=== PATIENT | female | born 1985 | race African-American/Black ===

== ENCOUNTER 2018-01-05 10:08 | Observation (INO) ==
[2018-01-05] MEDS ORDERED: ACETAMINOPHEN 325 MG TABLET PO PRN (12:34)
[2018-01-05] MEDS ORDERED: ONDANSETRON 4 MG/2 ML VIAL IV PRN (12:34)
[2018-01-05 13:18] LABS: Basophils % 0.3 % (0.0-0.8); Eosinophils # 0.1 10*3/uL (0.0-0.87); Eosinophils % 1.1 % (0.00-10.9); Hematocrit 38.3 VOL% (35.7-47.0); Hemoglobin 12.8 GM/DL (12.0-16.0); Immature Granulocytes % 0.4 %; Immature Granulocytes Absolute 0.05 #; Lymphocytes # 2.1 10*3/uL (1.4-4.0); Lymphocytes % 18.2 % (21.3-54.2); Mean Corpuscular HGB Conc 33.4 GM/DL (32-36); Mean Corpuscular Hemoglobin 30 PG (27-34); Mean Corpuscular Volume 90.8 FL (87-102); Mean Platelet Volume 9.9 FL (9.6-12.0); Monocytes % 8.4 % (1.7-12.7); Neutrophils # 8.1 10*3/uL (1.4-7.4); Neutrophils % 71.6 % (38.7-73.9); Platelet Count 324 T/CUMM (130-400); Red Blood Count 4.22 MC/CUMM (3.8-5.5); Red Cell Distribution Width 14.5 % (9.3-17.3); White Blood Count 11.3 T/CUMM (4-12)
[2018-01-05 13:43] LABS: Calcium 8.7 MG/DL (8.5-10.1); Potassium 4.1 MMOL/L (3.5-5.1)
[2018-01-05] MEDS: PIPERACILLIN/TAZOBACTAM 3,375 MG in SODIUM CHLORIDE 0.9% 100 ML IV SCH ×2 (14:40→20:45)
[2018-01-06] MEDS: PIPERACILLIN/TAZOBACTAM 3,375 MG in SODIUM CHLORIDE 0.9% 100 ML IV SCH ×2 (04:10→15:05)
[2018-01-06] MEDS ORDERED: PANTOPRAZOLE 40 MG TABLET PO SCH (09:00)
[2018-01-06] MEDS ORDERED: NICOTINE 14 MG/24 HR PATCH TRANSDERM SCH (09:00)
[2018-01-06] MEDS ORDERED: PROPOFOL 200 MG/20 ML VIAL IV ONE (12:26)
[2018-01-06] MEDS ORDERED: MIDAZOLAM 2 MG/2 ML VIAL ONE (12:26)
[2018-01-06] MEDS ORDERED: SEVOFLURANE 1 UNIT/15 MINUTE INH ONE (12:26)
[2018-01-06] MEDS ORDERED: SODIUM CHLORIDE 0.9% 100 ML IV ONE (12:27)
[2018-01-06] MEDS ORDERED: ONDANSETRON 4 MG/2 ML VIAL ONE ×2 (12:27→12:52)
[2018-01-06] MEDS ORDERED: PHENYLEPHRINE 10 MG/1 ML VIAL IV ONE (12:27)
[2018-01-06] MEDS ORDERED: fentaNYL 100 MCG/2 ML VIAL ONE (12:27)
[2018-01-06] MEDS ORDERED: MORPHINE 10 MG/1 ML VIAL IV PRN (12:49)
[2018-01-06] MEDS ORDERED: ONDANSETRON 4 MG/2 ML VIAL IV PRN (12:49)
[2018-01-06] MEDS ORDERED: MORPHINE 10 MG/1 ML VIAL ONE (12:52)
[2018-01-06 17:22] VITALS: BP 124/82
== END 2018-01-06 18:01 | disposition home or self-care (01) ==
LOC: N.ED 10:08 → N.EDINP 10:08 → N.3E 13:41
PROVIDERS: ADMIT Surgery; ATTEND Surgery

== ENCOUNTER 2020-01-23 11:57 | Inpatient (IN) ==
[2020-01-23 13:38] LABS: Basophils % 0.2 % (0.0-0.8); Eosinophils # 0.1 10*3/uL (0.0-0.87); Eosinophils % 0.5 % (0.00-10.9); Hematocrit 36.8 VOL% (35.7-47.0); Hemoglobin 12.3 GM/DL (12.0-16.0); Immature Granulocytes Absolute 0.13 #; Lymphocytes # 1.1 10*3/uL (1.4-4.0); Lymphocytes % 8.5 % (21.3-54.2); Mean Corpuscular HGB Conc 33.4 GM/DL (32-36); Mean Corpuscular Volume 86.6 FL (87-102); Mean Platelet Volume 10.3 FL (9.6-12.0); Monocytes % 12.1 % (1.7-12.7); Neutrophils % 77.7 % (38.7-73.9); Platelet Count 317 T/CUMM (130-400); Red Blood Count 4.25 MC/CUMM (3.8-5.5); Red Cell Distribution Width 17.4 % (9.3-17.3); White Blood Count 12.6 T/CUMM (4-12)
[2020-01-23 13:46] LABS: Apearance,Urine CLEAR (Clear); Bacteria,Urine Occasional /HPF (Few); Bilirubin,Urine Negative (Negative); Blood, Urine Moderate mg/dL (Negative); Glucose,Urine (UA) Negative (Negative); Ketones,Urine Negative (Negative); Mucus,Urine Occasional /LPF (Occasional); Nitrite,Urine Positive (Negative); Protein,Urine Negative; RBC,Urine 9 /HPF (0-4); Squamous Epithelial Cell,Urine Occasional /HPF (0-10); Urine Color Orange (Yellow); Urine Specific Gravity 1.011 (1.001-1.035); WBC,Urine 6 /HPF (0-6)
[2020-01-23 14:06] LABS: Albumin 2.7 G/DL (3.4-5.0); Bilirubin,Total 0.9 MG/DL (0.2-1.0); Calcium 9.3 MG/DL (8.5-10.1); Osmolality,Calculated 253.9 MOS/KG (273-304); Total Protein 8.6 G/DL (6.4-8.3)
[2020-01-23] MEDS ORDERED: NICOTINE 21 MG/24 HR PATCH TRANSDERM PRN (14:31)
[2020-01-23] MEDS ORDERED: ALUMINUM/MAGNES/SIMETH MAX STR 30 ML UDCUP PO PRN (14:31)
[2020-01-23] MEDS ORDERED: BISACODYL 5 MG TABLET PO PRN (14:31)
[2020-01-23] MEDS ORDERED: ONDANSETRON 4 MG/2 ML VIAL IV PRN (14:31)
[2020-01-23] MEDS ORDERED: DOCUSATE SODIUM 100 MG CAPSULE PO PRN (14:31)
[2020-01-23] MEDS ORDERED: diphenhydrAMINE CAP 25 MG CAPSULE PO PRN (14:31)
[2020-01-23] MEDS ORDERED: hydrALAZINE 20 MG/1 ML VIAL IV PRN (14:31)
[2020-01-23] MEDS ORDERED: DEXTROSE 10% 250 ML BAG IV PRN (14:31)
[2020-01-23] MEDS ORDERED: traZODone 50 MG TABLET PO PRN (14:31)
[2020-01-23] MEDS ORDERED: SIMETHICONE CHEW 125 MG TABLET PO PRN (14:31)
[2020-01-23] MEDS ORDERED: LACTULOSE 20 GM/30 ML UDCUP PO PRN (14:31)
[2020-01-23] MEDS ORDERED: ZALEPLON 5 MG CAPSULE PO PRN (14:31)
[2020-01-23] MEDS ORDERED: guaiFENesin/DM ER 600-30 MG TABLET PO PRN (14:31)
[2020-01-23] MEDS ORDERED: SODIUM CHLORIDE 0.9% 1,000 ML IV SCH (15:00)
[2020-01-23] MEDS ORDERED: cefTRIAXone 1,000 MG in SODIUM CHLORIDE 0.9% 100 ML IV SCH (15:00)
[2020-01-23] MEDS ORDERED: THIAMINE INJ 100 MG, FOLIC ACID INJ 1 MG, MULTIVITAMIN INJ 10 ML in SODIUM CHLORIDE 0.9... IV SCH (15:00)
[2020-01-23] MEDS ORDERED: PIPERACILLIN/TAZOBACTAM 3,375 MG in SODIUM CHLORIDE 0.9% 100 ML IV STA (15:18)
[2020-01-23] MEDS ORDERED: PIPERACILLIN/TAZOBACTAM 3,375 MG VIAL IV ONE (16:38)
[2020-01-23] MEDS: HYDROmorphone 2 MG/1 ML VIAL IV PRN (18:13)
[2020-01-23] MEDS: 1: THIAMINE INJ 100 MG, MULTIVITAMIN INJ 10 ML, FOLIC ACID INJ 1 MG in SODIUM CHLORIDE 0 IV SCH ×2 (20:53→21:17)
[2020-01-23] MEDS ORDERED: chlordiazePOXIDE 25 MG CAPSULE PO SCH (22:00)
[2020-01-23] MEDS: chlordiazePOXIDE 25 MG CAPSULE PER TUBE SCH (22:22)
[2020-01-23] MEDS: KETOROLAC 15 MG/1 ML VIAL IV PRN (23:19)
[2020-01-24 00:38] LABS: Barbiturates Screen,Urine Negative (Negative); Benzodiazepines Screen,Urine Negative (Negative); Cannabinoid Screen,Urine Positive (Negative); Opiate Screen,Urine Positive (Negative); Phencyclidine Screen,Urine Negative (Negative)
[2020-01-24] MEDS: PIPERACILLIN/TAZOBACTAM 3,375 MG in SODIUM CHLORIDE 0.9% 100 ML IV SCH ×4 (01:50→23:26)
[2020-01-24] MEDS: chlordiazePOXIDE 25 MG CAPSULE PER TUBE SCH (06:03)
[2020-01-24] MEDS: HYDROmorphone 2 MG/1 ML VIAL IV PRN ×2 (06:03→23:26)
[2020-01-24 07:18] LABS: Folate > 24.0 NG/ML (5.4-24.0); Vitamin B12 > 2000 PG/ML (211-911)
[2020-01-24 07:31] LABS: Calcium 6.2 MG/DL (8.5-10.1)
[2020-01-24 07:34] LABS: Albumin 1.7 G/DL (3.4-5.0)
[2020-01-24 07:35] LABS: Osmolality,Calculated 274.4 MOS/KG (273-304)
[2020-01-24 07:39] LABS: VLDL CHOLESTEROL 5.4 MG/DL
[2020-01-24 07:40] LABS: Bilirubin,Total 0.5 MG/DL (0.2-1.0)
[2020-01-24 07:41] LABS: Risk Ratio 3.03
[2020-01-24] MEDS ORDERED: LORazepam 2 MG/1 ML VIAL IV PRN (07:53)
[2020-01-24 08:06] LABS: Thyroid Stimulating Hormone 0.797 uIU/ml (0.358-3.74)
[2020-01-24] MEDS ORDERED: MAGNESIUM SULF RIDER 2 GM in PREMIX 1 EACH IV ONE (08:30)
[2020-01-24] MEDS ORDERED: POTASSIUM CHLORIDE INJ 40 MEQ in SODIUM CHLORIDE 0.45% 1,000 ML IV SCH (08:30)
[2020-01-24] MEDS ORDERED: CALCIUM GLUCONATE 2,000 MG in SODIUM CHLORIDE 0.9% 100 ML IV ONE (08:30)
[2020-01-24 08:46] LABS: Basophils % 0.4 % (0.0-0.8); Eosinophils # 0.1 10*3/uL (0.0-0.87); Eosinophils % 0.7 % (0.00-10.9); Hematocrit 33.2 VOL% (35.7-47.0); Hemoglobin 10.7 GM/DL (12.0-16.0); Immature Granulocytes % 1.4 %; Immature Granulocytes Absolute 0.14 #; Lymphocytes # 1.2 10*3/uL (1.4-4.0); Lymphocytes % 11.9 % (21.3-54.2); Mean Corpuscular HGB Conc 32.2 GM/DL (32-36); Mean Corpuscular Volume 88.8 FL (87-102); Mean Platelet Volume 9.7 FL (9.6-12.0); Monocytes % 13.2 % (1.7-12.7); Neutrophils % 72.4 % (38.7-73.9); Platelet Count 338 T/CUMM (130-400); Red Blood Count 3.74 MC/CUMM (3.8-5.5); Red Cell Distribution Width 17.2 % (9.3-17.3); White Blood Count 10.1 T/CUMM (4-12)
[2020-01-24] MEDS ORDERED: PANTOPRAZOLE 40 MG TABLET PO SCH (09:00)
[2020-01-24] MEDS ORDERED: FOLIC ACID 1 MG TABLET PO SCH (09:00)
[2020-01-24] MEDS ORDERED: THIAMINE 200 MG/2 ML VIAL IV SCH (09:00)
[2020-01-24] MEDS ORDERED: FOLIC ACID INJ 1 MG in SYRINGE 1 EACH IV SCH (09:00)
[2020-01-24] MEDS ORDERED: MULTIVITAMIN (CENTRUM) TABLET PO SCH (09:00)
[2020-01-24] MEDS: DOXYCYCLINE HYCLATE INJ 100 MG in SODIUM CHLORIDE 0.9% 100 ML IV SCH ×2 (09:35→21:46)
[2020-01-24] MEDS: 1: THIAMINE INJ 100 MG, MULTIVITAMIN INJ 10 ML, FOLIC ACID INJ 1 MG in SODIUM CHLORIDE 0 IV SCH (10:04)
[2020-01-24] MEDS: PANTOPRAZOLE 40 MG VIAL IV SCH (10:51)
[2020-01-24] MEDS: KETOROLAC 15 MG/1 ML VIAL IV PRN (18:15)
[2020-01-25] MEDS: HYDROmorphone 2 MG/1 ML VIAL IV PRN ×2 (05:37→16:07)
[2020-01-25 06:55] LABS: Basophils % 0.3 % (0.0-0.8); Eosinophils # 0.1 10*3/uL (0.0-0.87); Eosinophils % 1.3 % (0.00-10.9); Hematocrit 32.3 VOL% (35.7-47.0); Hemoglobin 9.9 GM/DL (12.0-16.0); Immature Granulocytes % 1.9 %; Immature Granulocytes Absolute 0.17 #; Lymphocytes # 1.3 10*3/uL (1.4-4.0); Lymphocytes % 14.8 % (21.3-54.2); Mean Corpuscular HGB Conc 30.7 GM/DL (32-36); Mean Corpuscular Volume 91.5 FL (87-102); Mean Platelet Volume 9.1 FL (9.6-12.0); Monocytes % 11.8 % (1.7-12.7); Neutrophils % 69.9 % (38.7-73.9); Platelet Count 391 T/CUMM (130-400); Red Blood Count 3.53 MC/CUMM (3.8-5.5); Red Cell Distribution Width 17.1 % (9.3-17.3)
[2020-01-25 07:30] LABS: Albumin 2.3 G/DL (3.4-5.0); Bilirubin,Total 0.8 MG/DL (0.2-1.0); Calcium 8.7 MG/DL (8.5-10.1); Osmolality,Calculated 258.5 MOS/KG (273-304); Total Protein 7.4 G/DL (6.4-8.3)
[2020-01-25] MEDS: PANTOPRAZOLE 40 MG VIAL IV SCH (08:23)
[2020-01-25] MEDS: PIPERACILLIN/TAZOBACTAM 3,375 MG in SODIUM CHLORIDE 0.9% 100 ML IV SCH ×2 (08:27→16:41)
[2020-01-25 10:19] LABS: HIV Antigen/Antibody Result Nonreactive (Nonreactive)
[2020-01-25] MEDS: DOXYCYCLINE HYCLATE INJ 100 MG in SODIUM CHLORIDE 0.9% 100 ML IV SCH (12:28)
[2020-01-26] MEDS: PIPERACILLIN/TAZOBACTAM 3,375 MG in SODIUM CHLORIDE 0.9% 100 ML IV SCH ×2 (00:50→08:20)
[2020-01-26] MEDS: HYDROmorphone 2 MG/1 ML VIAL IV PRN (02:41)
[2020-01-26] MEDS: DOXYCYCLINE HYCLATE INJ 100 MG in SODIUM CHLORIDE 0.9% 100 ML IV SCH (02:45)
[2020-01-26 05:49] LABS: Basophils % 0.4 % (0.0-0.8); Eosinophils # 0.2 10*3/uL (0.0-0.87); Eosinophils % 1.8 % (0.00-10.9); Hemoglobin 10.2 GM/DL (12.0-16.0); Immature Granulocytes % 1.4 %; Immature Granulocytes Absolute 0.13 #; Lymphocytes # 1.6 10*3/uL (1.4-4.0); Lymphocytes % 17.5 % (21.3-54.2); Mean Corpuscular HGB Conc 31.9 GM/DL (32-36); Mean Corpuscular Volume 90.1 FL (87-102); Monocytes % 8.7 % (1.7-12.7); Neutrophils % 70.2 % (38.7-73.9); Platelet Count 428 T/CUMM (130-400); Red Blood Count 3.55 MC/CUMM (3.8-5.5); Red Cell Distribution Width 16.5 % (9.3-17.3); White Blood Count 9.1 T/CUMM (4-12)
[2020-01-26 06:24] LABS: Albumin 2.3 G/DL (3.4-5.0); Bilirubin,Total 1.2 MG/DL (0.2-1.0); Calcium 8.7 MG/DL (8.5-10.1); Osmolality,Calculated 264.1 MOS/KG (273-304); Total Protein 7.4 G/DL (6.4-8.3)
[2020-01-26] MEDS: PANTOPRAZOLE 40 MG VIAL IV SCH (08:17)
[2020-01-26 12:06] VITALS: BP 131/95
== END 2020-01-26 12:50 | disposition home or self-care (01) | DRG 389 ==
LOC: N.ED 11:57 → SUATTDRO 14:31 → N.EDINP 14:31 → N.3E 17:26
PROVIDERS: ADMIT Internal Medicine; ATTEND Internal Medicine Critical Care Medicine

== ENCOUNTER 2022-03-22 18:24 | Inpatient (IN) ==
[2022-03-22] MEDS ORDERED: SODIUM CHLORIDE 0.9% 1,000 ML IV STA ×2 (18:48→19:42)
[2022-03-22 19:18] LABS: Basophils % 0.1 % (0.0-0.8); Eosinophils % 0.1 % (0.00-10.9); Hematocrit 26.9 VOL% (35.7-47.0); Hemoglobin 8.5 GM/DL (12.0-16.0); Immature Granulocytes % 0.6 %; Immature Granulocytes Absolute 0.05 #; Lymphocytes # 1.4 10*3/uL (1.4-4.0); Lymphocytes % 15.4 % (21.3-54.2); Mean Corpuscular HGB Conc 31.6 GM/DL (32-36); Mean Corpuscular Volume 77.1 FL (87-102); Mean Platelet Volume 8.6 FL (9.6-12.0); Monocytes # 0.3 10*3/uL (0.11-0.8); Monocytes % 2.8 % (1.7-12.7); Platelet Count 654 T/CUMM (130-400); Red Blood Count 3.49 MC/CUMM (3.8-5.5); Red Cell Distribution Width 16.4 % (9.3-17.3)
[2022-03-22] MEDS ORDERED: ONDANSETRON 4 MG/2 ML VIAL ONE ×2 (19:23→23:22)
[2022-03-22] MEDS ORDERED: ONDANSETRON 4 MG/2 ML VIAL IV STA (19:35)
[2022-03-22 19:38] LABS: Alanine Aminotransferase 9 U/L (13-56); Albumin 2.3 G/DL (3.4-5.0); Alkaline Phosphatase 145 U/L (45-117); Aspartate Amino Transferase 15 U/L (0-37); Bilirubin,Total < 0.39 MG/DL (0.20-1.00); Blood Urea Nitrogen 5 MG/DL (7-18); Carbon Dioxide 21 MMOL/L (21-32); Chloride 104 MMOL/L (98-107); Glucose 106 MG/DL (74-106); Potassium 3.1 MMOL/L (3.5-5.1); Sodium 136 MMOL/L (136-145); Total Protein 7.5 G/DL (6.4-8.2)
[2022-03-22 19:40] LABS: Anisocytosis 1+; Band Neutrophils 7 % (0-10); Hypochromia 1+; Lymphocytes 15 % (20-55); Total Cells Counted 100
[2022-03-22 19:41] LABS: Platelet Estimate Increased; Target Cells 1+
[2022-03-22] MEDS ORDERED: KETOROLAC 30 MG/1 ML VIAL IV STA (19:41)
[2022-03-22] MEDS ORDERED: KETOROLAC 30 MG/1 ML VIAL ONE (19:42)
[2022-03-22] MEDS ORDERED: POTASSIUM CHLORIDE 20 MEQ TABLET PO STA (19:44)
[2022-03-22 20:11] LABS: Bilirubin,Urine Negative (Negative); Blood, Urine Negative (Negative); Glucose,Urine (UA) Negative (Negative); Ketones,Urine Trace mg/dL (Negative); Nitrite,Urine Negative (Negative); Protein,Urine Negative (Negative); Urine Appearance Clear (Clear); Urine Color Yellow (Yellow); Urine Specific Gravity 1.025 (1.001-1.035); Urine Urobilinogen 0.2 eU/dL (<2.0); Urine pH 5.5 (4.5-8.0)
[2022-03-22 20:13] LABS: Hyaline Casts,Urine 1 /LPF (0-3); Mucus,Urine Few /LPF (Occasional); RBC,Urine 2 /HPF (0-4); Squamous Epithelial Cell,Urine Occasional /HPF (0-10)
[2022-03-22] MEDS ORDERED: MORPHINE 2 MG/1 ML SYRINGE IV STA (20:37)
[2022-03-22] MEDS ORDERED: ONDANSETRON 4 MG/2 ML VIAL IV ONE (20:37)
[2022-03-22] MEDS ORDERED: PIPERACILLIN/TAZOBACTAM 3,375 MG in SODIUM CHLORIDE 0.9% 100 ML IV STA (21:07)
[2022-03-22] MEDS ORDERED: fentaNYL 100 MCG/2 ML VIAL ONE (22:34)
[2022-03-22] MEDS ORDERED: MIDAZOLAM 2 MG/2 ML VIAL ONE (22:34)
[2022-03-22] MEDS ORDERED: DEXAMETHASONE 4 MG/1 ML VIAL ONE (23:22)
[2022-03-22] MEDS ORDERED: ROCURONIUM 50 MG/5 ML VIAL IV ONE (23:22)
[2022-03-22] MEDS ORDERED: LIDOCAINE 2% 5 ML VIAL ONE (23:22)
[2022-03-22] MEDS ORDERED: ETOMIDATE 40 MG/20 ML VIAL IV ONE (23:22)
[2022-03-22] MEDS ORDERED: SUCCINYLCHOLINE 200 MG/10 ML VIAL ONE (23:22)
[2022-03-22] MEDS ORDERED: SEVOFLURANE 1 UNIT/15 MINUTE INH ONE (23:23)
[2022-03-22] MEDS ORDERED: LACTATED RINGERS 1,000 ML IV ONE (23:23)
[2022-03-23] MEDS ORDERED: GLYCOPYRROLATE 0.4 MG/2 ML VIAL ONE (00:11)
[2022-03-23] MEDS ORDERED: NEOSTIGMINE 10 MG/10 ML VIAL ONE (00:11)
[2022-03-23] MEDS ORDERED: fentaNYL 100 MCG/2 ML VIAL ONE (00:24)
[2022-03-23 00:26] LABS: Bacteria,Urine Few /HPF (Few); Mucus,Urine Occasional /LPF (Occasional); RBC,Urine 4 /HPF (0-4); Squamous Epithelial Cell,Urine Occasional /HPF (0-10)
[2022-03-23 00:27] LABS: Bilirubin,Urine Negative (Negative); Blood, Urine Negative (Negative); Glucose,Urine (UA) Negative (Negative); Ketones,Urine Negative (Negative); Nitrite,Urine Negative (Negative); Protein,Urine Negative (Negative); Urine Appearance Clear (Clear); Urine Color Yellow (Yellow); Urine Urobilinogen 0.2 eU/dL (<2.0); Urine pH 5.5 (4.5-8.0)
[2022-03-23] MEDS: KETOROLAC 30 MG/1 ML VIAL IV SCH ×4 (02:38→21:22)
[2022-03-23] MEDS: metroNIDAZOLE INJ 500 MG/100 ML PREMIX IV SCH ×3 (02:39→16:52)
[2022-03-23 06:06] LABS: Basophils % 0.2 % (0.0-0.8); Hemoglobin 7.9 GM/DL (12.0-16.0); Immature Granulocytes % 0.4 %; Immature Granulocytes Absolute 0.04 #; Lymphocytes # 0.6 10*3/uL (1.4-4.0); Lymphocytes % 6.2 % (21.3-54.2); Mean Corpuscular HGB Conc 31.6 GM/DL (32-36); Mean Corpuscular Volume 77.6 FL (87-102); Mean Platelet Volume 8.9 FL (9.6-12.0); Monocytes # 0.3 10*3/uL (0.11-0.8); Monocytes % 3.1 % (1.7-12.7); Neutrophils % 90.1 % (38.7-73.9); Platelet Count 590 T/CUMM (130-400); Red Blood Count 3.22 MC/CUMM (3.8-5.5); Red Cell Distribution Width 16.4 % (9.3-17.3); White Blood Count 10.3 T/CUMM (4-12)
[2022-03-23 06:29] LABS: Band Neutrophils 22 % (0-10); Lymphocytes 9 % (20-55); Metamyelocytes 2 %; Total Cells Counted 100
[2022-03-23 06:30] LABS: Hypochromia 1+; Microcytosis 1+; Target Cells Slight
[2022-03-23 06:32] LABS: Calcium 8.2 MG/DL (8.5-10.1); Osmolality,Calculated 271.7 MOS/KG (273-304); Potassium 3.8 MMOL/L (3.5-5.1)
[2022-03-23] MEDS: HYDROmorphone 1 MG/1 ML SYRINGE IV PRN ×2 (07:33→18:07)
[2022-03-23] MEDS ORDERED: ENOXAPARIN 40 MG/0.4 ML SYRINGE SUBCUT SCH (09:00)
[2022-03-23] MEDS ORDERED: ENOXAPARIN 30 MG/0.3 ML SYRINGE SUBCUT SCH (09:00)
[2022-03-23] MEDS ORDERED: MAGNESIUM SULF RIDER 2 GM/50 ML PREMIX IV ONE (09:00)
[2022-03-23] MEDS ORDERED: PIPERACILLIN/TAZOBACTAM 3,375 MG in SODIUM CHLORIDE 0.9% 100 ML IV SCH (09:00)
[2022-03-23] MEDS: PIPERACILLIN/TAZOBACTAM 3,375 MG in SODIUM CHLORIDE 0.9% 100 ML IV SCH ×2 (09:17→16:52)
[2022-03-23 21:36] VITALS: BP 116/75
[2022-03-24] MEDS ORDERED: IBUPROFEN 800 MG TABLET PO PRN (01:00)
[2022-03-24] MEDS ORDERED: oxyCODONE/ACETAMINOPHEN 5-325 MG TABLET PO PRN (01:00)
== END 2022-03-23 21:50 | DRG 743 ==
LOC: N.ED 18:24 → N.EDINP 22:40 → N.3E 03-23 01:31
PROVIDERS: ADMIT Student in an Organized Health Care Education/Training Program; ATTEND Student in an Organized Health Care Education/Training Program